=== PATIENT | female | born 1965 ===

== ENCOUNTER 2024-07-11 10:30 | Inpatient (IN) | payer OTHER ==
[~2024-07-11] VITALS: Ht 160 cm; Wt 59.4 kg
[2024-07-11 12:20] LABS: HEMATOCRIT 36.3 % (36.0-45.00); HEMOGLOBIN 11.9 g/dL (12.0-15.00); MEAN CELL VOLUME 79.5 fL (80.00-100.00); MEAN CORPUSCULAR HGB CONC 32.7 g/dl (32.0-36.0); PH,URINE 5.5 (5.0-8.0); PLATELET COUNT 303 K/uL (150-450); RED BLOOD COUNT 4.57 M/uL (4.00-6.00); RED CELL DISTRIBUTION WIDTH 15.6 % (11.5-14.5); URINE APPEARANCE Clear; URINE BILIRRUBIN Negative (NEGATIVE); URINE BLOOD Large; URINE COLOR Yellow; URINE GLUCOSE Negative (NEGATIVE); URINE KETONE Negative (NEGATIVE); URINE LEUKOCYTE Negative; URINE NITRATE Negative; URINE PROTEIN Negative (NEGATIVE); URINE UROBILINOGEN 0.2 E.U./dl
[2024-07-11 12:24] LABS: URINE BACTERIA 24.4 uL (0.0-1933); URINE RBC 1523.4 uL (0.0-20.8); URINE WBC 7.2 uL (0.0-23.2)
[2024-07-11 12:57] LABS: INR 0.99; PARTIAL THROMBOPLASTIN TIME 26.3 SECONDS (22.0-34.0); PROTHROMBIN TIME 10.8 SECONDS (9.0-11.5)
[2024-07-11 13:02] LABS: ALBUMIN 3.9 gm/dL (3.4-5.0); BILIRUBIN TOTAL 0.51 mg/dL (0.3-1.2); CALCIUM 9.7 mg/dL (8.5-10.1); CREATININE SERUM 0.83 mg/dL (0.55-1.02); GFR 70.86; GLOBULINA 3.4 G/DL (2.4-3.5); POTASSIUM 4.28 mEq/L (3.5-5.1); TOTAL PROTEIN 7.3 gm/dL (6.4-8.2)
[2024-07-11] MEDS ORDERED: BONIVA (15:47)
[2024-07-11] MEDS ORDERED: LOPID (15:47)
[2024-07-11] MEDS ORDERED: B12 ACTIVE1000 MCG PO (15:47)
[2024-07-11] MEDS ORDERED: GALZIN50 MG PO (15:48)
[2024-07-11] MEDS ORDERED: CALCIUM 600+D1 EAC1 PO (15:48)
[2024-07-11 15:49] VITALS: BP 135/81
[2024-07-11] MEDS ORDERED: MAGNESIUM200 MG PO (15:49)
[2024-07-18] MEDS ORDERED: POVIDONE-IODINE 118 ML BOTT TOP ONE ×2 (06:51→09:00)
[2024-07-18] MEDS ORDERED: CEFAZOLIN SODIUM 1,000 MG VIAL ONE ×2 (06:52→07:47)
[2024-07-18] MEDS ORDERED: CEFAZOLIN SODIUM 1,000 MG VIAL IV ONE (09:00)
[2024-07-18] MEDS ORDERED: MORPHINE SULFATE 4 MG/ML VIAL IV ONE ×2 (10:20→10:50)
[2024-07-18] MEDS ORDERED: DEXTROSE 5 % AND 0.9 % NACL 1,000 ML IV SCH (12:15)
[2024-07-18 12:28] VITALS: BP 135/81; O2SAT 98
[2024-07-18] MEDS ORDERED: MEPERIDINE HCL/PF 25 MG/ML VIAL IM SCH (14:00)
[2024-07-18] MEDS ORDERED: PROMETHAZINE HCL 50 MG/ML AMPUL IM SCH (14:00)
[2024-07-18 16:00] VITALS: BP 140/80
[2024-07-18 21:00] VITALS: BP 150/80
[2024-07-18] MEDS ORDERED: CEFAZOLIN SODIUM 1,000 MG VIAL IV SCH (21:00)
[2024-07-18] MEDS ORDERED: ONDANSETRON HCL 2 MG/ML VIAL IV SCH (21:00)
[2024-07-19] VITALS: BP 140/80
[2024-07-19] MEDS ORDERED: OxyCODONE HCL/APAP UD (PERCOCET) PO SCH (08:00)
[2024-07-19 08:21] VITALS: BP 138/82
[2024-07-19] MEDS ORDERED: SIMETHICONE 125 MG CAPSULE PO SCH (09:00)
[2024-07-19] MEDS ORDERED: DOCUSATE SODIUM 100MG CAP PO SCH (09:00)
[2024-07-19] MEDS ORDERED: DOCUSATE CALCIUM 240 MG CAPSULE PO SCH (09:00)
[2024-07-19 14:59] VITALS: BP 133/70
[2024-07-20 00:19] VITALS: BP 135/89
[2024-07-20 08:00] VITALS: BP 126/78
== END 2024-07-20 10:56 | disposition home or self-care (01) | DRG 743 ==
LOC: SURH 07-16 10:30 → O/R 07-18 05:50 → OB/GYN 07-18 05:50
PROVIDERS: ADMIT Obstetrics & Gynecology; ATTEND Obstetrics & Gynecology
PROC: 0UT70ZZ Resection of Bilateral Fallopian Tubes, Open Approach (ICD-10-PCS; 2024-07-18)
PROC: 0UT20ZZ Resection of Bilateral Ovaries, Open Approach (ICD-10-PCS; 2024-07-18)
PROC: 0DNW0ZZ Release Peritoneum, Open Approach (ICD-10-PCS; 2024-07-18)
PROC: 0UT90ZZ Resection of Uterus, Open Approach (ICD-10-PCS; principal; 2024-07-18 10:15)
DX: D25.0 Submucous leiomyoma of uterus (principal); N80.03 Adenomyosis of the uterus; N73.6 Female pelvic peritoneal adhesions (postinfective); N72 Inflammatory disease of cervix uteri; N80.102 Endometriosis of left ovary, unspecified depth